=== PATIENT | male | born 2005 ===

== ENCOUNTER 2025-03-14 19:29 | Emergency (ER) | payer OTHER, SELFPAY ==
[2025-03-14 19:31] VITALS: BP 151/59
--- NOTE | 2025-03-14 22:03 | ED.MUSCINJ ---
HPI-Injury
General
Chief Complaint: Musculo-Skeletal Complaint
Source: patient
Exam Limitations: none
Time Seen by Provider: 03/14/25 21:50
Nursing documentation reviewed up to this point in time: agreed with
History of Present Illness-Injury
Is this injury a work related problem?: No
Is pt an associate of [facility]/[place]?: No
Initial Injury comments:
19-year-old male limited past medical history left knee pain with bleeding down his kneecap went off to the side unable to completely extend his leg, no fevers, no prior episode no numbness or tingling mild to moderate pain
Past History
Past History
ED Past Medical History: None
ED Past Surgical History: None
Social History
Tobacco: Non-smoker
Alcohol: None
Drug: None
Living: with family
Employment: Student
Phy Exam
Physical Exam
Physical Exam:
Physical Exam
General: no apparent distress, not acutely ill
Neck: No tongue bite
Heart: s1/s2 regular rate and rhythm, no murmur. equal radial pulses.
Lungs: no acute respiratory distress. clear bilaterally
Neuro: alert and oriented. no focal neurological deficits
Skin: no rash
Psychiatric: well kept. interactive and cooperative
Extremities: Left knee held in flexion patella slightly laterally displaced
Injury Course
Orders/Labs/Results
Orders:
Orders
03/14/25 19:33
Knee, Left 4 or More Views [CR Knee - Left 4 Or More View*] Urgent
Comment:
Reason For Exam: pain
03/14/25 22:02
Ibuprofen [Motrin] 600 mg PO NOW STA
Ondansetron Orally Disint [Zofran Odt (Orally Disintegrating)] 4 mg PO NOW STA
Oxycodone/Acetaminophen [Percocet 5/325] 1 tablet PO NOW STA
MDM/Problems Addressed
Differential Diagnosis Includes:
Patella dislocation, knee fracture ligamentous injury doubt true knee dislocation by history and physical
MDM/Problems Addressed:
Knee pain
*Radiology
Radiology exam reviewed: preliminary read by ED provider
*Pulse Oximetry
Patient hypoxic: no
*Critical Care Note
Total Time (30-74mins, 75-104mins- exclusive of procedures): Not Applicable
Update Note
Update Note:
Update x-ray noted gentle pressure knee able to fully extend, suspect he had a dislocation and self relocation
ED Attending Note
-
Portions of this chart may have been created with voice recognition software.� Occasional wrong word or��sound alike� substitutions may have occurred due to the inherent limitations of voice recognition software.
Discharge Plan
Departure
Patient Disposition: Home (Routine Discharge)
Date of Disposition: 03/14/25
Time of Disposition: 23:46
Patient with high blood pressure during this ER visit?: No
Condition: Good
Discharge Problem:
Closed dislocation of left patella
Instructions: How to Use Crutches, Contusion (DC), Ibuprofen, How to Use a Shoulder Sling, Using Cold for Pain
Prescriptions:
New
ibuprofen 600 mg tablet
600 mg PO Q6H PRN (Reason: Pain) Qty: 20 0RF
Referrals:
Juanjose Mayfield MD [Family Provider, Family Practice]
Chadwick Dia MD [Active, Orthopedics] - Next open appointment
Interventions
Interventions:
*Risk Screen - Suicide Last Done: 03/14/25 19:31
*General Assessment Last Done: 03/14/25 19:31
*Neglect/Abuse Screening Last Done: 03/14/25 19:31
*ED- Fall Risk Assessment Last Done: 03/14/25 19:31
*ED COVID-19 Vaccine History Last Done: 03/14/25 19:31
ED-Musculoskeletal Assessment Last Done: 03/14/25 22:14
Discharge Date and Time
Print Language: [id number]
[2025-03-14] MEDS: MOTRIN 600 MG PO (22:11)
[2025-03-14] MEDS: PERCOCET 5/325 1 TABLET PO (22:12)
[2025-03-14] MEDS: ZOFRAN ODT (ORALLY DISINTEGRATING) 4 MG PO (22:12)
[2025-03-14 22:16] VITALS: BP 126/87
== END 2025-03-15 00:16 | disposition home or self-care (01) ==
LOC: EMR 19:29
PROVIDERS: EMERGENCY PHYSICIAN Emergency Medicine; FAMILY PHYSICIAN Family Medicine
DX: S83.005A Unspecified dislocation of left patella, initial encounter (principal); X58.XXXA Exposure to other specified factors, initial encounter
CPT/HCPCS: 99283; 73564

== ENCOUNTER → 2025-08-07 16:17 | Outpatient (REF) | payer OTHER, SELFPAY | LOC: RAD 16:17 | PROVIDERS: ATTENDING PHYSICIAN Nurse Practitioner Family | DX: R07.9 Chest pain, unspecified (principal) | CPT/HCPCS: 71046 ==